=== PATIENT | male | born 1955 | race Caucasian/White ===

== ENCOUNTER 2024-01-17 15:25 | Emergency (ER) | payer OTHER ==
[2024-01-17 15:33] VITALS: BP 118/62; PULSE 77; RESP 18; TEMP 97.6; BMI 26.9
[2024-01-17 17:49] LABS: BASO % 0.7 % (0-2.0); EOS % 2.4 % (0-4.5); HEMATOCRIT 42.9 % (35.4-49); HEMOGLOBIN 14.7 GM/dL (11.7-16.9); LYMPH % 32.3 % (8-40); MCH 30.6 pg (25.7-33.7); MCHC 34.2 g/dl (32.0-35.9); MEAN CELL VOLUME 89.5 fl (80-96); MEAN PLT VOLUME 8.4 fl (7.5-11.1); MONO % 6.9 % (3.8-10.2); NEUT % 57.7 % (42.8-82.8); PLATELET COUNT 204 10^3/uL (134-434); RBC 4.79 M/mm3 (4.00-5.60); RDW 13.4 % (11.9-15.9); WHITE BLOOD COUNT 5.5 K/mm3 (4.0-10.0)
[2024-01-17 18:02] LABS: INR 1.12 (0.83-1.09)
[2024-01-17 18:03] LABS: POTASSIUM 4.5 mmol/L (3.5-5.1)
[2024-01-17 18:05] LABS: ACTIVATED PTT 31.2 SECONDS (25.2-36.5); ALBUMIN 3.8 g/dl (3.4-5.0); CALCIUM 9.3 mg/dL (8.5-10.1)
[2024-01-17 18:10] LABS: BILIRUBIN,TOTAL 0.8 mg/dL (0.2-1); TOT PROT 6.7 g/dl (6.4-8.2)
== END 2024-01-17 18:53 | disposition home or self-care (01) ==
LOC: JER 15:25
DX: S09.90XA Unspecified injury of head, initial encounter (principal); W01.198A Fall on same level from slipping, tripping and stumbling with subsequent striking against other object, initial encounter
CPT/HCPCS: 36415; 70450-TC; 80053; 85025; 85610; 85730; 86850; 86900; 86901; 99284-25